=== PATIENT | female | born 1965 | race Caucasian/White ===

== ENCOUNTER 2019-03-20 19:38 | Emergency (ER) | payer MEDICAID ==
[~2019-03-20] VITALS: Ht 175.3 cm; Wt 102.0 kg
[~2019-03-20 19:38] MED LIST: IBUP-1051 PO; IBUP-1984 PO; IBUP-1985 PO; LEVA15HF4 IH; NAPR-56 PO; PROM25TA14 PO
[2019-03-20] MEDS ORDERED: ketorolac tromethamine 15mg/ml inj. IM ONE (22:10)
[2019-03-20] MEDS ORDERED: ACET-2144 PO (22:23)
[2019-03-20] MEDS ORDERED: IBUP-1984 PO (22:23)
[2019-03-20 22:59] VITALS: BP 136/90
== END 2019-03-20 22:45 | disposition home or self-care (01) ==
LOC: ER 19:38
DX: M25.511 Pain in right shoulder (principal); J45.909 Unspecified asthma, uncomplicated; F12.90 Cannabis use, unspecified, uncomplicated; F15.90 Other stimulant use, unspecified, uncomplicated; Z98.51 Tubal ligation status; Z56.0 Unemployment, unspecified; Z79.899 Other long term (current) drug therapy; W01.0XXA Fall on same level from slipping, tripping and stumbling without subsequent striking against object, initial encounter; Y93.89 Activity, other specified; Y92.89 Other specified places as the place of occurrence of the external cause; Y99.8 Other external cause status
CPT/HCPCS: 73030; 96372; 99284; J1885

== ENCOUNTER 2021-01-23 19:22 | Emergency (ER) | payer MEDICAID ==
[~2021-01-23] VITALS: Ht 172.7 cm; Wt 106.8 kg
[2021-01-23] MEDS ORDERED: metoclopramide 5 mg/ml inj IV ONE (19:40)
[2021-01-23] MEDS ORDERED: ipratropium/albuterol 3ml nebule NEB ONE (19:40)
[2021-01-23] MEDS ORDERED: ondansetron/PF 4mg/2ml inj IV ONE (19:50)
[2021-01-23] MEDS ORDERED: LIDOcaine Viscous 15ml cup MM ONE (19:50)
[2021-01-23] MEDS ORDERED: mag hydrox/Alum hydrox/simeth 30ml oral suspension PO ONE (19:50)
[2021-01-23] MEDS ORDERED: famotidine/PF 10 mg/ml inj IV ONE (19:50)
[2021-01-23] MEDS ORDERED: morphine 4 MG/ML inj SYRINge IV ONE (19:50)
[2021-01-23 19:57] LABS: BASOPHILS # (AUTO) 0.1 X10'3 (0-0.2); BASOPHILS % (AUTO) 0.6 % (0-1); EOSINOPHILS # (AUTO) 0.2 X10'3 (0-0.9); EOSINOPHILS % (AUTO) 1.8 % (0-6); HEMATOCRIT 42.7 % (35.0-45.0); HEMOGLOBIN 14.3 g/dl (12.0-16.0); LYMPHOCYTES # (AUTO) 1.8 X10'3 (1.1-4.8); LYMPHOCYTES % (AUTO) 20.5 % (21-51); MEAN CORPUSCULAR HGB CONC 33.4 g/dL (33.0-36.5); MEAN CORPUSCULAR VOLUME 92.9 FL (78-98); MEAN PLATELET VOLUME 9.5 FL (7.4-10.4); MONOCYTES # (AUTO) 0.7 X10'3 (0-0.9); MONOCYTES % (AUTO) 7.5 % (2-12); NEUTROPHILS # (AUTO) 6.1 X10'3 (1.8-7.7); NEUTROPHILS % (AUTO) 69.6 % (42-75); PLATELET COUNT 194 X10'3 (140-440); RED CELL DISTRIBUTION WIDTH 14.6 % (11.5-14.5); WHITE BLOOD COUNT 8.8 X10'3 (4.5-11.0)
[2021-01-23 20:06] LABS: ALANINE AMINOTRANSFERASE 86 U/L (12-78); ALBUMIN 3.2 G/DL (3.4-5.0); ALKALINE PHOSPHATASE 93 IU/L (46-116); ANION GAP 10 (8-16); ASPARTATE AMINO TRANSFERASE 150 U/L (10-37); BLOOD UREA NITROGEN 17 MG/DL (7-18); BUN/CREATININE RATIO 19.8 (6.6-38.0); CALCIUM 8.4 MG/DL (8.5-10.1); CHLORIDE 106 MMOL/L (99-107); CREATININE 0.86 MG/DL (0.40-0.90); GLUCOSE 117 MG/DL (70-104); POTASSIUM 3.4 MMOL/L (3.5-5.1); SODIUM 142 MMOL/L (135-145); TOTAL CARBON DIOXIDE 25.7 MMOL/L (24-32); TOTAL PROTEIN 6.5 G/DL (6.4-8.2); eGFR 69 ML/MIN
--- NOTE | 2021-01-23 20:37 | NUR ---
Patient resting comfortably at this time, reports epigastric pain 2/10. Respiratory is WNL with 2L NC.
[2021-01-23 20:52] LABS: ETHANOL < 0.010 GM/DL (0.0-0.010)
[2021-01-23] MEDS ORDERED: pantoprazole 40 MG vial IV ONE (21:05)
[2021-01-23] MEDS ORDERED: PANT-47 PO (21:07)
[2021-01-23] MEDS ORDERED: ONDA4TAB6 PO (21:07)
[2021-01-23 21:39] VITALS: BP 118/80
== END 2021-01-23 21:42 | disposition home or self-care (01) ==
LOC: ER 19:22
DX: J45.901 Unspecified asthma with (acute) exacerbation (principal); K29.00 Acute gastritis without bleeding; R06.02 Shortness of breath; R11.0 Nausea; R10.13 Epigastric pain; F32.9 Major depressive disorder, single episode, unspecified; F17.200 Nicotine dependence, unspecified, uncomplicated; F12.90 Cannabis use, unspecified, uncomplicated; F15.90 Other stimulant use, unspecified, uncomplicated; Z98.51 Tubal ligation status; Z56.0 Unemployment, unspecified; Z79.899 Other long term (current) drug therapy
CPT/HCPCS: 36415; 71045; 80053; 80320; 83880; 84484; 85025; 93005; 94640; 96374; 96375; 99285; C9113; J2270; J2405; J2765; J3490; 94760

== ENCOUNTER 2021-03-15 02:45 | Emergency (ER) | payer MEDICAID ==
[~2021-03-15] VITALS: Ht 172.7 cm; Wt 106.8 kg
[~2021-03-15 02:45] MED LIST changes: +ONDA4TAB6 PO; +PANT-47 PO
[2021-03-15] MEDS ORDERED: normal saline 1000ML IV soln IVB ONE (03:20)
[2021-03-15] MEDS ORDERED: dicyclomine 10mg/ml 2ml ampule IM ONE (03:20)
[2021-03-15] MEDS ORDERED: ondansetron/PF 4mg/2ml inj IV ONE (03:20)
[2021-03-15] MEDS ORDERED: pantoprazole 40 MG vial IV ONE (03:20)
[2021-03-15 03:30] LABS: BASOPHILS # (AUTO) 0.1 X10'3 (0-0.2); BASOPHILS % (AUTO) 0.8 % (0-1); EOSINOPHILS # (AUTO) 0.1 X10'3 (0-0.9); HEMATOCRIT 45.1 % (35.0-45.0); HEMOGLOBIN 15.2 g/dl (12.0-16.0); LYMPHOCYTES # (AUTO) 1.3 X10'3 (1.1-4.8); LYMPHOCYTES % (AUTO) 17.7 % (21-51); MEAN CORPUSCULAR HEMOGLOBIN 31.3 PG (27.0-31.0); MEAN CORPUSCULAR HGB CONC 33.7 g/dL (33.0-36.5); MEAN CORPUSCULAR VOLUME 92.9 FL (78-98); MEAN PLATELET VOLUME 9.6 FL (7.4-10.4); MONOCYTES # (AUTO) 0.6 X10'3 (0-0.9); MONOCYTES % (AUTO) 7.6 % (2-12); NEUTROPHILS # (AUTO) 5.2 X10'3 (1.8-7.7); NEUTROPHILS % (AUTO) 71.9 % (42-75); PLATELET COUNT 208 X10'3 (140-440); RED BLOOD COUNT 4.86 X10'6 (4.20-5.60); WHITE BLOOD COUNT 7.3 X10'3 (4.5-11.0)
[2021-03-15 03:37] LABS: ALANINE AMINOTRANSFERASE 192 U/L (12-78); ALBUMIN 3.5 G/DL (3.4-5.0); ALBUMIN/GLOBULIN RATIO 0.9 (1.1-1.5); ALKALINE PHOSPHATASE 92 IU/L (46-116); ANION GAP 11 (8-16); ASPARTATE AMINO TRANSFERASE 276 U/L (10-37); BILIRUBIN,TOTAL 1.8 MG/DL (0.1-1.0); CALCIUM 9.6 MG/DL (8.5-10.1); CHLORIDE 107 MMOL/L (99-107); CREATININE 0.96 MG/DL (0.40-0.90); GLUCOSE 118 MG/DL (70-104); LIPASE 131 U/L (73-393); SODIUM 143 MMOL/L (135-145); TOTAL CARBON DIOXIDE 24.8 MMOL/L (24-32); TOTAL PROTEIN 7.2 G/DL (6.4-8.2); eGFR 61 ML/MIN
[2021-03-15 03:44] LABS: BLOOD UREA NITROGEN 18 MG/DL (7-18); BUN/CREATININE RATIO 18.8 (6.6-38.0)
[2021-03-15 04:47] LABS: URINE AMPHETAMINE SCREEN POSITIVE (Neg); URINE BARBITUATE SCREEN NEGATIVE (Neg); URINE BENZODIAZEPINES SCREEN NEGATIVE (Neg); URINE CANNABINOID SCREEN POSITIVE (Neg); URINE COCAINE SCREEN NEGATIVE (Neg); URINE METHADONE SCREEN NEGATIVE (Neg); URINE OPIATE SCREEN NEGATIVE (Neg); URINE PHENCYCLIDINE SCREEN NEGATIVE (Neg)
[2021-03-15 04:50] LABS: CLARITY,URINE CLOUDY (Clear); COLOR,URINE YELLOW (Yellow); GLUCOSE, URINE NEGATIVE (Neg); KETONES,URINE NEGATIVE (Neg); LEUKOCYTE ESTERASE ,URINE NEGATIVE (Neg); NITRITES, URINE POSITIVE (Neg); OCCULT BLOOD,URINE NEGATIVE (Neg); PH,URINE 8.5 (4.8-8.0); PROTEIN,URINE NEGATIVE (Neg)
[2021-03-15] MEDS ORDERED: LORazepam 2 mg/ml vial IV ONE (04:50)
[2021-03-15] MEDS ORDERED: metoclopramide 5 mg/ml inj IV ONE (04:50)
[2021-03-15] MEDS ORDERED: morphine 4 MG/ML inj SYRINge IV ONE (04:50)
[2021-03-15 04:56] LABS: UA COLLECTION TYPE NON-SPECIFIED
[2021-03-15] MEDS ORDERED: iohexol 300mg/ml 100ml inj. ONE (04:57)
[2021-03-15 05:00] LABS: BACTERIA,URINE 3+ /HPF (Neg); RBC,URINE NONE SEEN /HPF (0-2); SQUAMOUS EPITHELIAL CELL,UR MODERATE /LPF (FEW); WBC,URINE 0-4 /HPF (0-4)
[2021-03-15 05:01] LABS: AMORPHOUS PHOSPHATES 2+
[2021-03-15] MEDS ORDERED: PANT-47 PO (05:54)
--- NOTE | 2021-03-15 06:45 | NUR ---
PT SLEEPING, NO S/S DISTRESS, DISCOMFORT.
[2021-03-15 08:30] VITALS: BP 109/76
--- NOTE | 2021-03-15 08:53 | NUR ---
PT CONTINUES TO SLEEP, VSS, NO S/S DISCOMFORT OR DISTRESS.
[2021-03-15] MEDS ORDERED: metoprolol tartrate 1mg/ml inj IV ONE (10:00)
--- NOTE | 2021-03-15 10:05 | NUR ---
PT AMB TO BATHROOM AND BACK TO ROOM 11. WILL CALL FOR RIDE HOME.
--- NOTE | 2021-03-23 17:39 | NUR ---
Called patient regarding need to antibiotic due to acute UTI finding. Patient educated regarding need for antibiotic therapy. Patient request rx to [facility] into [facility] [address]. Rx: keflex 500 mg 1 tab PO QID x7 days total 28 tablets with 0 refills
== END 2021-03-15 10:18 | disposition home or self-care (01) ==
LOC: ER 02:46
DX: R10.11 Right upper quadrant pain (principal); R10.12 Left upper quadrant pain; R10.13 Epigastric pain; R11.10 Vomiting, unspecified; F15.10 Other stimulant abuse, uncomplicated; J45.909 Unspecified asthma, uncomplicated; F32.9 Major depressive disorder, single episode, unspecified; F17.200 Nicotine dependence, unspecified, uncomplicated; F12.90 Cannabis use, unspecified, uncomplicated; Z98.51 Tubal ligation status; Z72.89 Other problems related to lifestyle; Z56.0 Unemployment, unspecified; Z79.899 Other long term (current) drug therapy
CPT/HCPCS: 36415; 74022; 74177; 80053; 80305; 81001; 83690; 85025; 87077; 87088; 87186; 93005; 96372; 96374; 96375; 99285; C9113; J0500; J2060; J2270; J2405; J2765; J7030; Q9967

== ENCOUNTER 2021-05-09 10:48 | Inpatient (IN) | payer MEDICAID ==
[~2021-05-09] VITALS: Ht 172.7 cm; Wt 106.8 kg
[2021-05-09] MEDS ORDERED: famotidine/PF 10 mg/ml inj IV ONE (11:40)
[2021-05-09] MEDS ORDERED: mag hydrox/Alum hydrox/simeth 30ml oral suspension PO ONE (11:40)
[2021-05-09] MEDS ORDERED: metoclopramide 5 mg/ml inj IV ONE (11:40)
[2021-05-09] MEDS ORDERED: LIDOcaine Viscous 15ml cup MM ONE (11:40)
[2021-05-09] MEDS ORDERED: sucralfate 1gm/10ml UD suspension PO ONE (11:40)
[2021-05-09] MEDS ORDERED: normal saline 1000ML IV soln IVB ONE (11:40)
[2021-05-09 11:50] LABS: BASOPHILS # (AUTO) 0.1 X10'3 (0-0.2); BASOPHILS % (AUTO) 1.1 % (0-1); EOSINOPHILS # (AUTO) 0.1 X10'3 (0-0.9); EOSINOPHILS % (AUTO) 1.1 % (0-6); HEMATOCRIT 43.8 % (35.0-45.0); HEMOGLOBIN 14.9 g/dl (12.0-16.0); LYMPHOCYTES % (AUTO) 13.6 % (21-51); MEAN CORPUSCULAR HEMOGLOBIN 31.2 PG (27.0-31.0); MEAN CORPUSCULAR VOLUME 91.7 FL (78-98); MEAN PLATELET VOLUME 9.9 FL (7.4-10.4); MONOCYTES # (AUTO) 0.4 X10'3 (0-0.9); MONOCYTES % (AUTO) 5.9 % (2-12); NEUTROPHILS # (AUTO) 5.9 X10'3 (1.8-7.7); NEUTROPHILS % (AUTO) 78.3 % (42-75); PLATELET COUNT 186 X10'3 (140-440); RED BLOOD COUNT 4.78 X10'6 (4.20-5.60); RED CELL DISTRIBUTION WIDTH 14.3 % (11.5-14.5); WHITE BLOOD COUNT 7.6 X10'3 (4.5-11.0)
[2021-05-09 12:03] LABS: ALANINE AMINOTRANSFERASE 118 U/L (12-78); ALBUMIN 3.5 G/DL (3.4-5.0); ALKALINE PHOSPHATASE 98 IU/L (46-116); ANION GAP 11 (8-16); ASPARTATE AMINO TRANSFERASE 205 U/L (10-37); BILIRUBIN,TOTAL 1.5 MG/DL (0.1-1.0); BLOOD UREA NITROGEN 14 MG/DL (7-18); CALCIUM 9.2 MG/DL (8.5-10.1); CHLORIDE 103 MMOL/L (99-107); GLUCOSE 110 MG/DL (70-104); SODIUM 143 MMOL/L (135-145); eGFR 87 ML/MIN
[2021-05-09 12:12] LABS: POTASSIUM 2.9 MMOL/L (3.5-5.1)
[2021-05-09] MEDS ORDERED: potassium Cl 20 mEq SR tablet PO STA ×2 (12:16→16:16)
[2021-05-09] MEDS ORDERED: potassium Cl 10 mEq/100mL bag IV ONE (12:20)
[2021-05-09] MEDS ORDERED: dexamethasone sod phosphate 10mg/ml inj IV STA (12:26)
[2021-05-09 12:27] LABS: LIPASE 11502 U/L (73-393)
[2021-05-09] MEDS ORDERED: ipratropium/albuterol 3ml nebule NEB ONE (12:30)
[2021-05-09] MEDS ORDERED: ketorolac trometh. 30mg/ml inj. IV ONE (12:35)
[2021-05-09] MEDS ORDERED: morphine 4 MG/ML inj SYRINge IV ONE (12:35)
[2021-05-09] MEDS ORDERED: CefTRIAXone 2gm/D5W 50ml BAG 50 ML IV ONE (12:40)
--- NOTE | 2021-05-09 12:51 | NUR ---
HELD THE TORODOL AND MORPHINE PT IS PAIN FEE AT THIS TIME.
--- NOTE | 2021-05-09 13:29 | NUR ---
LTRASOUND TECH AT BEDSIDE.
--- NOTE | 2021-05-09 13:55 | NUR ---
PT IS GOING TO CT SCAN.
[2021-05-09] MEDS ORDERED: CHLO25TA10 PO (15:19)
[2021-05-09] MEDS ORDERED: SERT-432 PO (15:19)
[2021-05-09] MEDS ORDERED: BECL10.62 PO (15:19)
[2021-05-09] MEDS ORDERED: PANT40TA54 PO (15:19)
[2021-05-09] MEDS ORDERED: ALBU90AE PO (15:19)
[2021-05-09] MEDS ORDERED: LORazepam 1 MG tablet PO PRN (16:10)
[2021-05-09] MEDS ORDERED: LORazepam 2 mg/ml vial IV PRN (16:10)
[2021-05-09] MEDS ORDERED: magnesium 4gm in 100ml NS 100 ML IV PRN (16:15)
[2021-05-09] MEDS ORDERED: magnesium 2GM in 50ml NS 50 ML IV PRN (16:15)
[2021-05-09] MEDS ORDERED: ondansetron/PF 4mg/2ml inj IV PRN (16:15)
[2021-05-09] MEDS ORDERED: mag hydrox/Alum hydrox/simeth 30ml oral suspension PO PRN (16:15)
[2021-05-09] MEDS ORDERED: potassium Cl 40MEQ/1/2NS 520ml 520 ML IV PRN ×2 (16:15)
[2021-05-09] MEDS ORDERED: HYDROcodone/acetaminophen 10/325mg tab PO PRN (16:15)
[2021-05-09] MEDS ORDERED: magnesium hydroxide 30ml (MOM) UD suspension PO PRN (16:15)
[2021-05-09] MEDS ORDERED: acetaminophen 325mg tablet PO PRN ×2 (16:15)
[2021-05-09] MEDS ORDERED: morphine 2 MG/ML inj. syringe IV PRN ×2 (16:15)
[2021-05-09] MEDS ORDERED: HYDROcodone/acetaminophen 5mg/325mg tablet PO PRN (16:15)
[2021-05-09] MEDS ORDERED: potassium Cl 20 mEq SR tablet PO PRN (16:15)
[2021-05-09] MEDS ORDERED: magnesium Cl slow-release 64mg tablet PO PRN (16:15)
[2021-05-09] MEDS: normal saline 1000ml 1,000 ML IV SCH ×2 (16:48→20:15)
[2021-05-09 17:42] LABS: URINE AMPHETAMINE SCREEN POSITIVE (Neg); URINE BARBITUATE SCREEN NEGATIVE (Neg); URINE BENZODIAZEPINES SCREEN NEGATIVE (Neg); URINE CANNABINOID SCREEN POSITIVE (Neg); URINE COCAINE SCREEN NEGATIVE (Neg); URINE METHADONE SCREEN NEGATIVE (Neg); URINE OPIATE SCREEN NEGATIVE (Neg); URINE PHENCYCLIDINE SCREEN NEGATIVE (Neg)
--- NOTE | 2021-05-09 18:34 | NUR ---
Problems reprioritized. Patient report given, questions answered & plan of care reviewed with Maria Luz HANEY.
[2021-05-09] MEDS: K and/or MAG REPLACEMENT MC SCH (20:00)
--- NOTE | 2021-05-09 20:00 | NUR ---
i was not aware that pt was brought up from the er. when i discovered that pt was in , pt was asleep and her daughter was at the bedside. i asked pt's daughter what time they have been in the room and she answered right before 190.
[2021-05-09 20:20] VITALS: BP 126/75
[2021-05-09] MEDS: budesonide 0.5mg/2ml UD nebule IH SCH (20:51)
[2021-05-09] MEDS: albuterol 2.5 MG/3 ML nebule NEB PRN (20:51)
[2021-05-09] MEDS ORDERED: temazepam 15mg capsule PO PRN (21:00)
[2021-05-09] MEDS: docusate sod 100mg capsule PO SCH (21:10)
[2021-05-09] MEDS: heparin, porcine 5000 units/ml vial SQ SCH (21:11)
[2021-05-09 22:00] VITALS: BP 113/69
--- NOTE | 2021-05-10 00:18 | NUR ---
MESSAGE: [id number] LAYMAN, HEATHER 56 HERE FOR PANCREATITIS. SAW AN ORDER FOR COVID TEST. I WANTED TO MAKE SURE YOU ORDERED SEND OUT COVID TEST. THANK YOU. [id number] AGUSTIN
[2021-05-10] MEDS: normal saline 1000ml 1,000 ML IV SCH ×5 (00:40→23:52)
--- NOTE | 2021-05-10 06:19 | NUR ---
Patient in room ORTHO 4013. I have received report from modesto HANEY and had the opportunity to ask questions and assume patient care.
--- NOTE | 2021-05-10 06:33 | NUR ---
called pharmacy to make sure amilcar is ok to have this AM because pt is going to have a hida scan with contrast. They said it would be ok
[2021-05-10 06:34] LABS: BASOPHILS % (AUTO) 0.3 % (0-1); EOSINOPHILS % (AUTO) 0 % (0-6); HEMATOCRIT 40.2 % (35.0-45.0); HEMOGLOBIN 13.2 g/dl (12.0-16.0); LYMPHOCYTES # (AUTO) 0.9 X10'3 (1.1-4.8); LYMPHOCYTES % (AUTO) 16.6 % (21-51); MEAN CORPUSCULAR HEMOGLOBIN 30.9 PG (27.0-31.0); MEAN CORPUSCULAR HGB CONC 32.8 g/dL (33.0-36.5); MEAN CORPUSCULAR VOLUME 94.2 FL (78-98); MEAN PLATELET VOLUME 9.9 FL (7.4-10.4); MONOCYTES # (AUTO) 0.3 X10'3 (0-0.9); MONOCYTES % (AUTO) 5.5 % (2-12); NEUTROPHILS # (AUTO) 4.2 X10'3 (1.8-7.7); NEUTROPHILS % (AUTO) 77.6 % (42-75); PLATELET COUNT 179 X10'3 (140-440); RED BLOOD COUNT 4.27 X10'6 (4.20-5.60); RED CELL DISTRIBUTION WIDTH 14.6 % (11.5-14.5); WHITE BLOOD COUNT 5.4 X10'3 (4.5-11.0)
--- NOTE | 2021-05-10 06:40 | NUR ---
Problems reprioritized. Patient report given, questions answered & plan of care reviewed with LYNDON CLARKE.
[2021-05-10 06:42] LABS: ALANINE AMINOTRANSFERASE 661 U/L (12-78); ALBUMIN 2.9 G/DL (3.4-5.0); ALBUMIN/GLOBULIN RATIO 0.9 (1.1-1.5); ALKALINE PHOSPHATASE 118 IU/L (46-116); ANION GAP 8 (8-16); ASPARTATE AMINO TRANSFERASE 509 U/L (10-37); BILIRUBIN,TOTAL 0.5 MG/DL (0.1-1.0); BLOOD UREA NITROGEN 9 MG/DL (7-18); BUN/CREATININE RATIO 14.5 (6.6-38.0); CALCIUM 8.1 MG/DL (8.5-10.1); CHLORIDE 109 MMOL/L (99-107); CREATININE 0.62 MG/DL (0.40-0.90); GLUCOSE 110 MG/DL (70-104); LIPASE 420 U/L (73-393); MAGNESIUM 1.9 MG/DL (1.5-2.4); PHOSPHORUS 4.1 MG/DL (2.3-4.5); POTASSIUM 3.3 MMOL/L (3.5-5.1); SODIUM 142 MMOL/L (135-145); TOTAL CARBON DIOXIDE 25.1 MMOL/L (24-32); eGFR > 90 ML/MIN
[2021-05-10 06:45] VITALS: BP 105/68
[2021-05-10] MEDS: CefTRIAXone 2gm/D5W 50ml BAG 50 ML IV SCH (07:08)
[2021-05-10] MEDS ORDERED: pantoprazole 40mg Tablet.DR PO SCH (08:00)
[2021-05-10] MEDS: lisinopril 10 MG tablet PO SCH (08:00)
[2021-05-10] MEDS: heparin, porcine 5000 units/ml vial SQ SCH ×2 (08:00→20:14)
[2021-05-10] MEDS: K and/or MAG REPLACEMENT MC SCH ×2 (08:00→20:04)
[2021-05-10] MEDS: budesonide 0.5mg/2ml UD nebule IH SCH ×2 (08:00→20:02)
--- NOTE | 2021-05-10 08:00 | NUR ---
PT WAS PICKED UP BY [facility] FOR HIDA SCAN, HOLDING OTHER MEDS TILL PT COMES BACK OFF OF NPO.
[2021-05-10] MEDS ORDERED: NORMAL SALINE IV ONE (09:10)
[2021-05-10] MEDS ORDERED: SINCALIDE IV ONE (09:10)
[2021-05-10] MEDS: potassium Cl 20 mEq SR tablet PO PRN ×3 (10:39→20:15)
[2021-05-10] MEDS: thiamine 100mg tablet PO SCH (10:39)
[2021-05-10] MEDS: folic acid 1mg tablet PO SCH (10:40)
[2021-05-10] MEDS: docusate sod 100mg capsule PO SCH ×2 (10:40→20:14)
[2021-05-10] MEDS: multivitamins, therapeutics tablet PO SCH (10:40)
[2021-05-10] MEDS: nicotine 14mg patch - 24hr TD SCH (10:40)
[2021-05-10] MEDS: sertraline 25mg tablet PO SCH (12:56)
--- NOTE | 2021-05-10 15:07 | NUR ---
Page Sent PAGER ID: [phone] MESSAGE: [phone] LAYMAN, I SAW ORDERS NEEDING ACKNOWLEGMENT FOR A NPO DIET FOR TODAY AT MIDNIGHT. ARE YOU WANTING THE PT NPO AGAIN? TRICIA [id number]
--- NOTE | 2021-05-10 16:08 | NUR ---
Page Sent PAGER ID: [phone] MESSAGE: [id number] LAYMAN, CAN YOU PLEASE GIVE ME A CALL WHEN YOU CAN. TRICIA [id number]
[2021-05-10] MEDS: pantoprazole 40 MG vial IV SCH ×2 (17:11→20:14)
[2021-05-10] MEDS ORDERED: ringers solution, lacted 1,000 ML IV ONE (17:25)
[2021-05-10 18:00] VITALS: BP 114/73
--- NOTE | 2021-05-10 18:27 | NUR ---
Problems reprioritized. Patient report given, questions answered & plan of care reviewed with NITIN HANEY.
--- NOTE | 2021-05-10 18:45 | NUR ---
Patient in room ORTHO 4013. I have received report from Gigi HANEY and had the opportunity to ask questions and assume patient care.
[2021-05-10] MEDS: albuterol 2.5 MG/3 ML nebule NEB PRN (20:03)
[2021-05-10 22:00] VITALS: BP 92/58
[2021-05-11] VITALS (15 sets, daily range): BP systolic 90–124; BP diastolic 48–83
[2021-05-11] MEDS: normal saline 1000ml 1,000 ML IV SCH ×5 (04:20→23:16)
[2021-05-11] MEDS ORDERED: famotidine/PF 10 mg/ml inj IV ONE (06:00)
--- NOTE | 2021-05-11 06:06 | NUR ---
Problems reprioritized. Patient report given, questions answered & plan of care reviewed with Lisa HANEY.
[2021-05-11 06:29] LABS: BASOPHILS % (AUTO) 0.8 % (0-1); EOSINOPHILS # (AUTO) 0.1 X10'3 (0-0.9); EOSINOPHILS % (AUTO) 1.9 % (0-6); HEMATOCRIT 38.1 % (35.0-45.0); HEMOGLOBIN 12.8 g/dl (12.0-16.0); LYMPHOCYTES # (AUTO) 1.5 X10'3 (1.1-4.8); LYMPHOCYTES % (AUTO) 35.8 % (21-51); MEAN CORPUSCULAR HEMOGLOBIN 31.4 PG (27.0-31.0); MEAN CORPUSCULAR HGB CONC 33.6 g/dL (33.0-36.5); MEAN CORPUSCULAR VOLUME 93.5 FL (78-98); MEAN PLATELET VOLUME 9.8 FL (7.4-10.4); MONOCYTES # (AUTO) 0.3 X10'3 (0-0.9); MONOCYTES % (AUTO) 6.6 % (2-12); NEUTROPHILS # (AUTO) 2.3 X10'3 (1.8-7.7); NEUTROPHILS % (AUTO) 54.9 % (42-75); PLATELET COUNT 158 X10'3 (140-440); RED BLOOD COUNT 4.08 X10'6 (4.20-5.60); RED CELL DISTRIBUTION WIDTH 15.1 % (11.5-14.5); WHITE BLOOD COUNT 4.2 X10'3 (4.5-11.0)
[2021-05-11 07:01] LABS: ALANINE AMINOTRANSFERASE 370 U/L (12-78); ALBUMIN 2.6 G/DL (3.4-5.0); ALBUMIN/GLOBULIN RATIO 0.9 (1.1-1.5); ALKALINE PHOSPHATASE 96 IU/L (46-116); ANION GAP 10 (8-16); ASPARTATE AMINO TRANSFERASE 154 U/L (10-37); BILIRUBIN,TOTAL 0.3 MG/DL (0.1-1.0); BLOOD UREA NITROGEN 10 MG/DL (7-18); BUN/CREATININE RATIO 14.5 (6.6-38.0); CALCIUM 7.5 MG/DL (8.5-10.1); CHLORIDE 112 MMOL/L (99-107); CREATININE 0.69 MG/DL (0.40-0.90); GLUCOSE 88 MG/DL (70-104); LIPASE 145 U/L (73-393); MAGNESIUM 2.1 MG/DL (1.5-2.4); PHOSPHORUS 3.3 MG/DL (2.3-4.5); POTASSIUM 3.2 MMOL/L (3.5-5.1); SODIUM 146 MMOL/L (135-145); TOTAL CARBON DIOXIDE 24.3 MMOL/L (24-32); TOTAL PROTEIN 5.4 G/DL (6.4-8.2); eGFR 89 ML/MIN
[2021-05-11] MEDS: budesonide 0.5mg/2ml UD nebule IH SCH ×2 (08:00→19:45)
[2021-05-11] MEDS: lisinopril 10 MG tablet PO SCH (08:00)
[2021-05-11] MEDS: K and/or MAG REPLACEMENT MC SCH ×2 (08:00→19:29)
[2021-05-11] MEDS: multivitamins, therapeutics tablet PO SCH (08:00)
[2021-05-11] MEDS: docusate sod 100mg capsule PO SCH ×2 (08:00→19:33)
[2021-05-11] MEDS: heparin, porcine 5000 units/ml vial SQ SCH ×2 (08:00→19:34)
--- NOTE | 2021-05-11 08:33 | NUR ---
pt. refused [id number] pulmocort
[2021-05-11] MEDS: pantoprazole 40 MG vial IV SCH (09:27)
[2021-05-11] MEDS: thiamine 100mg tablet PO SCH (09:28)
[2021-05-11] MEDS: sertraline 25mg tablet PO SCH (09:28)
[2021-05-11] MEDS: folic acid 1mg tablet PO SCH (09:28)
[2021-05-11] MEDS: CefTRIAXone 2gm/D5W 50ml BAG 50 ML IV SCH (09:30)
[2021-05-11] MEDS: nicotine 14mg patch - 24hr TD SCH (09:38)
[2021-05-11] MEDS ORDERED: INDOCYANINE GREEN 25 MG/10 ML VIAL IV STA (13:53)
--- NOTE | 2021-05-11 14:37 | NUR ---
pt off to OR with OR staff
[2021-05-11] MEDS ORDERED: LIDOcaine 1% 30ml preserv. free vial ONE (16:03)
[2021-05-11] MEDS ORDERED: BUPIVAcaine 0.5% inj/PF 30 ML ONE (16:03)
[2021-05-11] MEDS ORDERED: labetalol 20mg/4ml (5mg/ml) syringe IV PRN (16:10)
[2021-05-11] MEDS ORDERED: ringers solution, lacted 1,000 ML IV SCH (16:10)
[2021-05-11] MEDS ORDERED: hydrALAZINE 20mg/ml inj. IV PRN (16:10)
[2021-05-11] MEDS ORDERED: HYDROmorphone/PF 0.2 MG/ML SYRINGE IV PRN ×2 (16:10)
[2021-05-11] MEDS ORDERED: ondansetron/PF 4mg/2ml inj IV PRN (16:10)
[2021-05-11] MEDS ORDERED: morphine 4 MG/ML inj SYRINge IV PRN (16:10)
[2021-05-11] MEDS ORDERED: meperidine/PF 25mg/ml syringe IV PRN (16:10)
[2021-05-11] MEDS ORDERED: proCHLORperazine 10 MG/2 ml inj IV PRN (16:10)
[2021-05-11] MEDS ORDERED: acetaminophen 1,000mg/100ml IV 100 ML IV PRN (16:10)
[2021-05-11] MEDS ORDERED: morphine 2 MG/ML inj. syringe IV PRN (16:10)
[2021-05-11] MEDS ORDERED: ketorolac tromethamine 15mg/ml inj. IV ONE (16:10)
[2021-05-11] MEDS ORDERED: midazolam 1 mg/ML 2ml injection ONE (16:16)
[2021-05-11] MEDS ORDERED: fentaNYL /PF 50mcg/ml 5ml ampule ONE (16:16)
[2021-05-11] MEDS ORDERED: ceFAZolin 1000mg inj ONE ×2 (16:32→16:33)
[2021-05-11] MEDS ORDERED: LIDOcaine 2% (20mg/ml) 5ml vial ONE (16:33)
[2021-05-11] MEDS ORDERED: rocuronium 10mg/ml inj IV ONE (16:33)
[2021-05-11] MEDS ORDERED: propofol inj 20 ML IV ONE (16:33)
[2021-05-11] MEDS ORDERED: dexamethasone sod phosphate 4mg/ml inj. ONE (16:34)
[2021-05-11] MEDS ORDERED: ondansetron/PF 4mg/2ml inj ONE (16:35)
[2021-05-11] MEDS ORDERED: 0.9 % SODIUM CHLORIDE 10 ML VIAL ONE ×2 (16:43→16:46)
[2021-05-11] MEDS ORDERED: ePHEDrine 50MG/ML INJ. ONE ×2 (16:43→16:46)
[2021-05-11] MEDS ORDERED: neostigmine methylsulfate 1 MG/ML 10ml vial ONE (17:00)
[2021-05-11] MEDS ORDERED: glycopyrrolate 0.2mg/ml inj ONE (17:00)
--- NOTE | 2021-05-11 17:12 | NUR ---
ASSUME CARE PT AROUSABLE TO NAME VSS NO DISTRESS, IV TO RIGHT ARM INTACT WITH IVF INFUSING. LAP SITES TO ABD INTACT, COVERED. CONT TO MONITOR Addendum: 05/11/21 at 1727 by Lashae Paz RN Amended: Links added.
[2021-05-11] MEDS ORDERED: HYDROcodone/acetaminophen 10/325mg tab PO PRN (17:15)
[2021-05-11] MEDS ORDERED: HYDROcodone/acetaminophen 5mg/325mg tablet PO PRN (17:15)
--- NOTE | 2021-05-11 18:40 | NUR ---
Patient in room ORTHO 4013. I have received report from Lisa HANEY and had the opportunity to ask questions and assume patient care.
[2021-05-11] MEDS: pantoprazole 40mg Tablet.DR PO SCH (19:33)
[2021-05-12 02:00] VITALS: BP 113/68
[2021-05-12] MEDS: normal saline 1000ml 1,000 ML IV SCH ×2 (04:15→09:15)
[2021-05-12 06:00] VITALS: BP 103/66
--- NOTE | 2021-05-12 06:04 | NUR ---
Problems reprioritized. Patient report given, questions answered & plan of care reviewed with Sissy HANEY.
[2021-05-12 06:30] LABS: BASOPHILS % (AUTO) 0.2 % (0-1); EOSINOPHILS % (AUTO) 0 % (0-6); HEMATOCRIT 41.6 % (35.0-45.0); HEMOGLOBIN 13.9 g/dl (12.0-16.0); LYMPHOCYTES # (AUTO) 0.7 X10'3 (1.1-4.8); LYMPHOCYTES % (AUTO) 10.3 % (21-51); MEAN CORPUSCULAR HGB CONC 33.3 g/dL (33.0-36.5); MEAN CORPUSCULAR VOLUME 92.9 FL (78-98); MEAN PLATELET VOLUME 9.4 FL (7.4-10.4); MONOCYTES # (AUTO) 0.3 X10'3 (0-0.9); MONOCYTES % (AUTO) 4.7 % (2-12); NEUTROPHILS # (AUTO) 5.6 X10'3 (1.8-7.7); NEUTROPHILS % (AUTO) 84.8 % (42-75); PLATELET COUNT 169 X10'3 (140-440); RED BLOOD COUNT 4.48 X10'6 (4.20-5.60); RED CELL DISTRIBUTION WIDTH 14.8 % (11.5-14.5); WHITE BLOOD COUNT 6.6 X10'3 (4.5-11.0)
[2021-05-12 06:53] LABS: ALANINE AMINOTRANSFERASE 256 U/L (12-78); ALBUMIN 2.7 G/DL (3.4-5.0); ALBUMIN/GLOBULIN RATIO 0.9 (1.1-1.5); ALKALINE PHOSPHATASE 96 IU/L (46-116); ANION GAP 9 (8-16); ASPARTATE AMINO TRANSFERASE 72 U/L (10-37); BILIRUBIN,TOTAL 0.2 MG/DL (0.1-1.0); BLOOD UREA NITROGEN 7 MG/DL (7-18); BUN/CREATININE RATIO 9.6 (6.6-38.0); CALCIUM 7.8 MG/DL (8.5-10.1); CHLORIDE 110 MMOL/L (99-107); CREATININE 0.73 MG/DL (0.40-0.90); GLUCOSE 133 MG/DL (70-104); LIPASE 52 U/L (73-393); MAGNESIUM 1.9 MG/DL (1.5-2.4); POTASSIUM 3.7 MMOL/L (3.5-5.1); SODIUM 143 MMOL/L (135-145); TOTAL CARBON DIOXIDE 23.6 MMOL/L (24-32); TOTAL PROTEIN 5.8 G/DL (6.4-8.2); eGFR 83 ML/MIN
--- NOTE | 2021-05-12 06:58 | NUR ---
Patient in room ORTHO 4013. I have received report from Maribel MARTIN and had the opportunity to ask questions and assume patient care.
[2021-05-12] MEDS: K and/or MAG REPLACEMENT MC SCH (08:00)
[2021-05-12] MEDS: albuterol 2.5 MG/3 ML nebule NEB PRN (08:24)
[2021-05-12] MEDS: budesonide 0.5mg/2ml UD nebule IH SCH (08:24)
[2021-05-12] MEDS: nicotine 14mg patch - 24hr TD SCH (08:49)
[2021-05-12] MEDS: multivitamins, therapeutics tablet PO SCH (08:49)
[2021-05-12] MEDS: sertraline 25mg tablet PO SCH (08:49)
[2021-05-12] MEDS: thiamine 100mg tablet PO SCH (08:50)
[2021-05-12] MEDS: pantoprazole 40mg Tablet.DR PO SCH (08:50)
[2021-05-12] MEDS: folic acid 1mg tablet PO SCH (08:50)
[2021-05-12] MEDS: docusate sod 100mg capsule PO SCH (08:50)
[2021-05-12] MEDS: CefTRIAXone 2gm/D5W 50ml BAG 50 ML IV SCH (08:50)
[2021-05-12] MEDS: lisinopril 10 MG tablet PO SCH (08:54)
[2021-05-12] MEDS: heparin, porcine 5000 units/ml vial SQ SCH (08:59)
[2021-05-12] MEDS ORDERED: benzocaine/menthol oral lozeng 1 EACH BOX MM PRN (09:20)
[2021-05-12 10:00] VITALS: BP 103/67
[2021-05-12] MEDS ORDERED: THIA50TA10 PO (10:01)
[2021-05-12] MEDS ORDERED: FOLI0.4T6 PO (10:01)
[2021-05-12] MEDS ORDERED: MULT-25 PO (10:01)
== END 2021-05-12 12:10 | disposition home or self-care (01) | DRG 263 ==
LOC: ER 10:49 → UNDOADMIN 16:11 → ED HOLD 16:11 → ORTHO 4S 19:00 → ED HOLD 19:00
PROVIDERS: ADMIT Internal Medicine; ATTEND Internal Medicine
PROC: CF1C1ZZ Planar Nuclear Medicine Imaging of Hepatobiliary System, All using Technetium 99m (Tc-99m) (ICD-10-PCS; 2021-05-10)
PROC: 8E0W4CZ Robotic Assisted Procedure of Trunk Region, Percutaneous Endoscopic Approach (ICD-10-PCS; 2021-05-11)
PROC: BF532Z0 Other Imaging of Gallbladder and Bile Ducts using Fluorescing Agent, Intraoperative (ICD-10-PCS; 2021-05-11)
PROC: 0FT44ZZ Resection of Gallbladder, Percutaneous Endoscopic Approach (ICD-10-PCS; principal; 2021-05-11 16:13)
DX: K85.10 Biliary acute pancreatitis without necrosis or infection (principal); E66.9 Obesity, unspecified; E87.6 Hypokalemia; F12.90 Cannabis use, unspecified, uncomplicated; F17.210 Nicotine dependence, cigarettes, uncomplicated; F32.9 Major depressive disorder, single episode, unspecified; I10 Essential (primary) hypertension; Z20.822 Contact with and (suspected) exposure to COVID-19; J44.9 Chronic obstructive pulmonary disease, unspecified; K21.9 Gastro-esophageal reflux disease without esophagitis; K82.8 Other specified diseases of gallbladder; Z98.51 Tubal ligation status; Z79.899 Other long term (current) drug therapy; Z68.35 Body mass index [BMI] 35.0-35.9, adult; Z56.0 Unemployment, unspecified; Z72.89 Other problems related to lifestyle; Z71.41 Alcohol abuse counseling and surveillance of alcoholic; Z71.51 Drug abuse counseling and surveillance of drug abuser; Z71.6 Tobacco abuse counseling
CPT/HCPCS: 36415; 71045; 74176; 74181; 76700; 78227; 80053; 80305; 82948; 83605; 83690; 83735; 84100; 84145; 85025; 87040; 87081; 87635; 93005; 94640; 94760; 96365; 96375; 97161; 99285; A4215; A4618; A9537; C9113; G0378; J0690; J0696; J1100; J1644; J2001; J2250; J2270; J2405; J2704; J2710; J2765; J2805; J3010; J3480; J3490; J7030; J7120; J7626

== ENCOUNTER → 2024-03-09 | Outpatient (CLI) | payer MEDICAID ==
[~2024-03-09] MED LIST changes: +ALBU90AE PO; +BECL10.62 PO; -IBUP-1051 PO; -IBUP-1984 PO; -IBUP-1985 PO; -LEVA15HF4 IH; +MULT-25 PO; -NAPR-56 PO; -ONDA4TAB6 PO; -PANT-47 PO; +PANT40TA54 PO; -PROM25TA14 PO; +SERT-432 PO; +THIA50TA10 PO
== END | disposition home or self-care (01) ==
LOC: RAD 12:46
PROVIDERS: ATTEND Nurse Practitioner Family
DX: M21.611 Bunion of right foot (principal); M21.961 Unspecified acquired deformity of right lower leg; M20.11 Hallux valgus (acquired), right foot; M77.31 Calcaneal spur, right foot
CPT/HCPCS: 73630